=== PATIENT | female | born 1995 | race African-American/Black ===

== ENCOUNTER 2017-06-05 14:44 | Emergency (ER) | payer OTHER ==
[~2017-06-05] VITALS: Ht 165.1 cm; Wt 100.0 kg
[~2017-06-05 14:44] MED LIST: ZOLO50TA PO
[2017-06-05 14:47] VITALS: BP 161/95; PULSE 82; RESP 12; TEMP 98.2; O2SAT 98
[2017-06-05 16:34] VITALS: BP 145/85; PULSE 98; RESP 18; TEMP 97; O2SAT 98
--- NOTE | 2017-06-05 17:14 | PD ---
HPI Chief Complaint: Psychiatric Symptoms Time Seen by Provider: 17:04 Travel History International Travel<30 days: No Contact w/Intl Traveler<30days: No Traveled to known affect area: No History of Present Illness HPI 21-year-old Afro-[place] female presents the emergency department with history of depression and suicidal attempt by overdose in the distant past, comes in voluntarily with reports of "having a bad day". Patient was recently started on an antidepressant on 21 May. She states she woke up this morning after a nightmare, and states depression through the day. She denies suicidal or homicidal ideation, or medical issues. Patient states she is attempting to set up follow-up with local psychiatrist. She is currently here going to school and has support system with her sister and friends. She has no known drug allergies. She has no history of alcohol or drug abuse. PFSH Past Medical History Anemia: Yes Asthma: Yes Anxiety: Yes Depression: Yes Diminished Hearing: No Respiratory: Yes (ASTHMA) Tetanus Vaccination: < 5 Years ?: Not LMP: 05/27/17 Past Surgical History Surgical History: No Previous Surgery Social History Alcohol Use: Yes (OCC) Tobacco Use: No Substance Use: No Allergies-Medications (Allergen,Severity, Reaction): Coded Allergies: No Known Allergies (Unverified , 07/05/16) Reported Meds & Prescriptions Reported Meds & Active Scripts Active Review of Systems Except as stated in HPI: all other systems reviewed are Neg General / Constitutional: No: Fever Eyes: No: Visual changes HENT: No: Headaches Cardiovascular: No: Chest Pain or Discomfort Respiratory: No: Shortness of Breath Gastrointestinal: No: Abdominal Pain Genitourinary: No: Dysuria Musculoskeletal: No: Pain Skin: No Rash Neurologic: No: Weakness Psychiatric: Positive: Depression, No: Suicidal Ideations, Substance Abuse, Homicidal Ideation Endocrine: No: Polydipsia Hematologic/Lymphatic: No: Easy Bruising Physical Exam Narrative GENERAL: Patient appears well-groomed and in no acute distress. SKIN: Warm and dry. Normal color. Normal turgor. HEAD: Atraumatic. Normocephalic. EYES: Pupils equal and round. No scleral icterus. No injection or drainage. ENT: No nasal bleeding or discharge. Mucous membranes pink and moist. Pharynx is clear. Airway is patent. NECK: Trachea midline. Supple nontender. CARDIOVASCULAR: Regular rate and rhythm. RESPIRATORY: No accessory muscle use. Clear to auscultation. Breath sounds equal bilaterally. MUSCULOSKELETAL: Extremities without clubbing, cyanosis, or edema. No obvious deformities. NEUROLOGICAL: Awake and alert. No obvious cranial nerve deficits. Motor grossly within normal limits. Five out of 5 muscle strength in the arms and legs. Normal speech. PSYCHIATRIC: Appropriate mood and affect; insight and judgment normal. Data Data Last Documented VS Vital Signs Date Time Temp Pulse Resp B/P (MAP) Pulse Ox O2 Delivery O2 Flow Rate FiO2 06/05/17 16:34 97.0 98 18 145/85 (105) 98 Room Air Orders Orders Complete Blood Count With Diff (06/05/17 16:25) Comprehensive Metabolic Panel (06/05/17 16:25) Ed Urine Pregnancytest Poc (06/05/17 16:25) Psych Screen (06/05/17 16:25) Drug Screen, Random Urine (06/05/17 16:25) Diet Regular Basic (06/05/17 Dinner) MDM Medical Decision Making Medical Screen Exam Complete: Yes Emergency Medical Condition: Yes Medical Record Reviewed: Yes Differential Diagnosis Depression. Here for voluntary psychiatric evaluation. History of suicidal ideation Narrative Course After examining in evaluating the patient she contracts for safety, and as she is here voluntarily I do not feel she is a danger to herself or others. Labs are canceled. Patient is to follow-up with local psychiatric services as discussed. Patient states she will return to emergency department if her symptoms worsen. Patient is felt to be stable for discharge at this time. Diagnosis Primary Impression: Depression Qualified Codes: F32.9 - Major depressive disorder, single episode, unspecified Referrals: Psychiatrist Patient Instructions: General Instructions Additional Instructions: After examining in evaluating the patient she contracts for safety, and as she is here voluntarily I do not feel she is a danger to herself or others. Patient is to follow-up with local psychiatric services as discussed. Patient states she will return to emergency department if her symptoms worsen. Patient is felt to be stable for discharge at this time. Med/Other Pt SpecificInfo: No Change to Meds Scripts No Active Prescriptions or Reported Meds Disposition: DISCHARGE HOME Condition: Stable Ludwin Bond Jun 05, 2017 17:14
== END 2017-06-05 17:47 | disposition home or self-care (01) ==
LOC: NEPJ 14:44
DX: F32.9 Major depressive disorder, single episode, unspecified (principal); D64.9 Anemia, unspecified; J45.909 Unspecified asthma, uncomplicated; F41.9 Anxiety disorder, unspecified
CPT/HCPCS: 99283

== ENCOUNTER 2017-11-07 23:57 | Emergency (ER) | payer OTHER ==
[2017-11-08 00:27] VITALS: BP 149/74; PULSE 98; RESP 16; TEMP 99; O2SAT 99
[2017-11-08] MEDS ORDERED: SODIUM CHLORIDE 0.9% FLUSH 10 ML FLUSH IVF PRN (01:00)
[2017-11-08] MEDS ORDERED: IBUPROFEN SUSP 100 MG/5 ML 120 ML BOTTLE PO ONE (01:00)
[2017-11-08] MEDS ORDERED: DEXAMETHASONE SOD PHOS 4 MG/ML VIAL IV PUSH ONE (01:00)
--- NOTE | 2017-11-08 01:18 | PD ---
HPI Chief Complaint: Cold / Flu Symptoms Time Seen by Provider: 00:50 Travel History International Travel<30 days: No Contact w/Intl Traveler<30days: No Traveled to known affect area: No History of Present Illness HPI Patient is a 22-year-old female presented to the emergency department for evaluation of sore throat, dysphasia. Patient states that she cannot swallow because of the pain. Patient is spitting saliva into a bag. She reports a fever 2 days ago of 101. She states her roommate was sick and believes this is what got her sick as well. She states she took DayQuil, has been drinking hot tea and using sore throat lozenges. She has not had any medications today. She denies any cough, chest pain, abdominal pain, nausea, vomiting, headache. Symptom onset was gradual, symptoms are moderate to severe nature. She rates her pain a 7 out of 10, worse with swallowing. She also reports that she lost her voice. [facility] Past Medical History Anemia: Yes Asthma: Yes Anxiety: Yes Depression: Yes Diminished Hearing: No Respiratory: Yes (ASTHMA) ?: Not LMP: 10/19/17 Past Surgical History Surgical History: No Previous Surgery Social History Alcohol Use: Yes (OCC) Tobacco Use: No Substance Use: No Allergies-Medications (Allergen,Severity, Reaction): Coded Allergies: mushroom (Verified Allergy, Intermediate, 11/08/17) No Known Allergies (Unverified Allergy, Unknown, 11/08/17) Reported Meds & Prescriptions Reported Meds & Active Scripts Active No Active Prescriptions or Reported Medications Review of Systems Except as stated in HPI: all other systems reviewed are Neg HENT: Positive: Sore Throat, Congestion Physical Exam Narrative GENERAL: Overweight, well-developed, alert -[place] female. Presenting in no acute distress. SKIN: Warm and dry. HEAD: Atraumatic. Normocephalic. EYES: Pupils equal and round. No scleral icterus. No injection or drainage. ENT: No nasal bleeding or discharge. Mucous membranes pink and moist. Airway appears patent, uvula is midline, no tonsillar hypertrophy noted. No stridor noted. NECK: Trachea midline. No JVD. CARDIOVASCULAR: Regular rate and rhythm. RESPIRATORY: No accessory muscle use. Clear to auscultation. Breath sounds equal bilaterally. GASTROINTESTINAL: Abdomen soft, non-tender, nondistended. Hepatic and splenic margins not palpable. MUSCULOSKELETAL: Extremities without clubbing, cyanosis, or edema. No obvious deformities. NEUROLOGICAL: Awake and alert. No obvious cranial nerve deficits. Motor grossly within normal limits. Five out of 5 muscle strength in the arms and legs. Normal speech. PSYCHIATRIC: Appropriate mood and affect; insight and judgment normal. Data Data Last Documented VS Vital Signs Date Time Temp Pulse Resp B/P (MAP) Pulse Ox O2 Delivery O2 Flow Rate FiO2 11/08/17 00:27 99.0 98 16 149/74 (99) 99 Orders Orders Basic Metabolic Panel (Bmp) (11/08/17 00:51) Complete Blood Count With Diff (11/08/17 00:51) Monoscreen (11/08/17 00:51) Group A Rapid Strep Screen (11/08/17 00:51) Ct Soft Tiss Neck W Iv Cont (11/08/17 00:51) Dexamethasone Inj (Decadron Inj) (11/08/17 01:00) Sodium Chloride 0.9% Flush (Ns Flush) (11/08/17 01:00) Ed Urine Pregnancytest Poc (11/08/17 00:51) Iv Access Insert/Monitor (11/08/17 00:51) Ibuprofen Liq (Motrin Liq) (11/08/17 01:00) Ibuprofen Liq (Motrin Liq) (11/08/17 01:32) Urinalysis - C+S If Indicated (11/08/17 02:02) Sodium Chlor 0.9% 1000 Ml Inj (Ns 1000 M (11/08/17 02:15) Strep Culture (Group A) (11/08/17 00:50) Amoxicillin (Trimox) (11/08/17 02:30) Iohexol 350 Inj (Omnipaque 350 Inj) (11/08/17 02:54) Labs Laboratory Tests Test 11/08/17 01:00 11/08/17 02:10 White Blood Count 12.3 TH/MM3 Red Blood Count 4.41 MIL/MM3 Hemoglobin 10.5 GM/DL Hematocrit 32.6 % Mean Corpuscular Volume 73.9 FL Mean Corpuscular Hemoglobin 23.9 PG Mean Corpuscular Hemoglobin Concent 32.3 % Red Cell Distribution Width 16.0 % Platelet Count 504 TH/MM3 Mean Platelet Volume 7.2 FL Neutrophils (%) (Auto) 68.6 % Lymphocytes (%) (Auto) 20.7 % Monocytes (%) (Auto) 8.9 % Eosinophils (%) (Auto) 1.5 % Basophils (%) (Auto) 0.3 % Neutrophils # (Auto) 8.4 TH/MM3 Lymphocytes # (Auto) 2.5 TH/MM3 Monocytes # (Auto) 1.1 TH/MM3 Eosinophils # (Auto) 0.2 TH/MM3 Basophils # (Auto) 0.0 TH/MM3 CBC Comment DIFF FINAL Differential Comment Blood Urea Nitrogen 5 MG/DL Creatinine 0.72 MG/DL Random Glucose 87 MG/DL Calcium Level 8.9 MG/DL Sodium Level 139 MEQ/L Potassium Level 3.4 MEQ/L Chloride Level 103 MEQ/L Carbon Dioxide Level 25.7 MEQ/L Anion Gap 10 MEQ/L Estimat Glomerular Filtration Rate 124 ML/MIN Monoscreen NEG Urine Color YELLOW Urine Turbidity HAZY Urine pH 6.0 Urine Specific Castella 1.032 Urine Protein 30 mg/dL Urine Glucose (UA) NEG mg/dL Urine Ketones 40 mg/dL Urine Occult Blood NEG Urine Nitrite NEG Urine Bilirubin NEG Urine Urobilinogen 4.0 MG/DL Urine Leukocyte Esterase SMALL Urine RBC 5 /hpf Urine WBC 4 /hpf Urine Squamous Epithelial Cells 3 /hpf Urine Bacteria RARE /hpf Microscopic Urinalysis Comment CULT NOT INDICATED MDM Medical Decision Making Medical Screen Exam Complete: Yes Emergency Medical Condition: Yes Interpretation(s) Laboratory Tests Test 11/08/17 01:00 11/08/17 02:10 White Blood Count 12.3 TH/MM3 Red Blood Count 4.41 MIL/MM3 Hemoglobin 10.5 GM/DL Hematocrit 32.6 % Mean Corpuscular Volume 73.9 FL Mean Corpuscular Hemoglobin 23.9 PG Mean Corpuscular Hemoglobin Concent 32.3 % Red Cell Distribution Width 16.0 % Platelet Count 504 TH/MM3 Mean Platelet Volume 7.2 FL Neutrophils (%) (Auto) 68.6 % Lymphocytes (%) (Auto) 20.7 % Monocytes (%) (Auto) 8.9 % Eosinophils (%) (Auto) 1.5 % Basophils (%) (Auto) 0.3 % Neutrophils # (Auto) 8.4 TH/MM3 Lymphocytes # (Auto) 2.5 TH/MM3 Monocytes # (Auto) 1.1 TH/MM3 Eosinophils # (Auto) 0.2 TH/MM3 Basophils # (Auto) 0.0 TH/MM3 CBC Comment DIFF FINAL Differential Comment Blood Urea Nitrogen 5 MG/DL Creatinine 0.72 MG/DL Random Glucose 87 MG/DL Calcium Level 8.9 MG/DL Sodium Level 139 MEQ/L Potassium Level 3.4 MEQ/L Chloride Level 103 MEQ/L Carbon Dioxide Level 25.7 MEQ/L Anion Gap 10 MEQ/L Estimat Glomerular Filtration Rate 124 ML/MIN Monoscreen NEG Urine Color YELLOW Urine Turbidity HAZY Urine pH 6.0 Urine Specific Castella 1.032 Urine Protein 30 mg/dL Urine Glucose (UA) NEG mg/dL Urine Ketones 40 mg/dL Urine Occult Blood NEG Urine Nitrite NEG Urine Bilirubin NEG Urine Urobilinogen 4.0 MG/DL Urine Leukocyte Esterase SMALL Urine RBC 5 /hpf Urine WBC 4 /hpf Urine Squamous Epithelial Cells 3 /hpf Urine Bacteria RARE /hpf Microscopic Urinalysis Comment CULT NOT INDICATED Vital Signs Date Time Temp Pulse Resp B/P (MAP) Pulse Ox O2 Delivery O2 Flow Rate FiO2 11/08/17 00:27 99.0 98 16 149/74 (99) 99 Differential Diagnosis Peritonsillar abscess versus pharyngitis versus URI versus other Narrative Course Patient is a 22-year-old female presenting to emerge from for evaluation of sore throat, dysphagia, fevers. Her vital signs are stable. Her airway appears patent however she is drooling and cannot swallow in the room. Labs imaging ordered and pending. Patient was given dexamethasone and ibuprofen now. Will reassess. CBC with a white blood cell count of 12.3 with no left shift, chemistry with potassium 3.4. Urinalysis is not consistent with a urinary tract infection. Monospot is negative, strep is negative. Patient will be treated empirically for pharyngitis. She received first dose of Augmentin in the emergency department. CT scan of the soft tissues of the neck shows markedly enlarged symmetric adenoid tonsils are mildly enlarged symmetric palatine tonsils. No evidence of abscess. Ethmoid and maxillary sinus disease. Multiple mildly prominent cervical lymph nodes likely reactive. Patient was encouraged to complete full course of antibiotics as prescribed. She is encouraged to return to emergency department for new worsening symptoms. Patient verbalized understanding of instructions. Patient stable for discharge. Diagnosis Primary Impression: Acute tonsillitis Qualified Codes: J03.90 - Acute tonsillitis, unspecified Referrals: Primary Care Physician Patient Instructions: General Instructions, Tonsillitis (ED) Additional Instructions: Follow-up with your primary doctor Complete full course of antibiotics as prescribed Maintain adequate fluid intake Return to emergency department for any new worsening symptoms Med/Other Pt SpecificInfo: Prescription(s) given Scripts Ibuprofen (Ibuprofen) 800 Mg Tab 800 MG PO Q6HR Y for PAIN, #40 TAB 0 Refills Prov: Radha Porter 11/08/17 Amoxicillin (Amoxicillin) 875 Mg Tab 875 MG PO BID for Infection for 10 Days, #20 TAB 0 Refills Prov: Radha Porter 11/08/17 Disposition: 01 DISCHARGE HOME Condition: Stable Radha Porter Nov 08, 2017 01:18
[2017-11-08] MEDS ORDERED: IBUPROFEN SUSP 100 MG/5 ML UDC ONE (01:32)
[2017-11-08 01:36] LABS: AUTOMATED NEUTROPHIL # 8.4 TH/MM3 (1.8-7.7); BASOPHIL % 0.3 % (0.0-2.0); EOSINOPHIL # 0.2 TH/MM3 (0-0.4); EOSINOPHIL % 1.5 % (0.0-4.0); HEMATOCRIT 32.6 % (35.0-46.0); HEMOGLOBIN 10.5 GM/DL (11.6-15.3); LYMPH % 20.7 % (9.0-44.0); LYMPHOCYTE # 2.5 TH/MM3 (1.0-4.8); MEAN CELL VOLUME 73.9 FL (80.0-100.0); MEAN CORPUSCULAR HEMOGLOBIN 23.9 PG (27.0-34.0); MEAN CORPUSCULAR HGB CONC 32.3 % (32.0-36.0); MEAN PLATELET VOLUME 7.2 FL (7.0-11.0); MONO % 8.9 % (0.0-8.0); MONOCYTE # 1.1 TH/MM3 (0-0.9); NEUT % 68.6 % (16.0-70.0); PLATELET COUNT 504 TH/MM3 (150-450); RED BLOOD COUNT 4.41 MIL/MM3 (4.00-5.30); WHITE BLOOD COUNT 12.3 TH/MM3 (4.0-11.0)
[2017-11-08 01:55] LABS: BICARBONATE 25.7 MEQ/L (21.0-32.0); CALCIUM 8.9 MG/DL (8.5-10.1); CREATININE 0.72 MG/DL (0.50-1.00)
[2017-11-08 02:07] LABS: MONOSCREEN NEG (NEG)
[2017-11-08] MEDS ORDERED: SODIUM CHLOR 0.9% 1000 ML INJ 1,000 ML IV ONE (02:15)
[2017-11-08] MEDS ORDERED: AMOXICILLIN 875 MG TAB PO ONE (02:30)
[2017-11-08 02:54] LABS: BACTERIA, URINE RARE /hpf; BLOOD, URINE NEG (NEG); GLUCOSE,URINE NEG (NEG); KETONE, URINE 40 mg/dL (NEG); NITRITE,URINE NEG (NEG); SQUAMOUS EPITHELIAL CELL URINE 3 /hpf (0-5); URINE COLOR YELLOW (YELLW/STRAW); URINE LEUKOCYTE ESTERASE SMALL (NEG)
[2017-11-08] MEDS ORDERED: IOHEXOL 350 MG/ML 10 ML VIAL (for RAD DIAG) IVCONTRAST ONE (02:54)
[2017-11-08 02:56] LABS: BILIRUBIN, URINE NEG (NEG)
--- NOTE | 2017-11-08 03:14 | RADRPT ---
EXAM DATE/TIME: 11/08/2017 02:52 [facility] COMPARISON: No previous studies available for comparison. INDICATIONS : Fever, throat swelling. IV CONTRAST: 70 cc Omnipaque 350 (iohexol) IV RADIATION DOSE: 21.53 CTDIvol (mGy) MEDICAL HISTORY : None SURGICAL HISTORY : None. ENCOUNTER: Initial ACUITY: 1 day PAIN SCALE: 3/10 LOCATION: neck TECHNIQUE: Volumetric scanning of the neck was performed. Using automated exposure control and adjustment of th e mA and/or kV according to patient size, radiation dose was kept as low as reasonably achievable to obtain optimal diagnostic quality images. DICOM format image data is available electronically for r eview and comparison. FINDINGS: NASOPHARYNX: Symmetric enlargement of the adenoid tonsils/posterior nasopharyngeal soft tissue. No organized perip herally enhancing fluid collection. OROPHARYNX: Mild bilateral enlargement of the palate seen tonsils. No organized peripherally enhancing fluid gina ection. LARYNX: The supraglottic, glottic, and infraglottic structures are intact. PARAPHARYNGEAL: The parapharyngeal space is intact. SALIVARY GLANDS: The parotid and submandibular glands are intact. LYMPH NODES: Multiple diffusely scattered prominent bilateral cervical lymph nodes with the largest on the right m easuring 1.6 cm in short axis dimension on image #39 and the largest on the left measuring 1.4 cm in short axis dimension on image #39. These are likely reactive. No necrotic lymph nodes identified. THYROID: Homogeneous enhancement without evidence of nodule. BONES: Unremarkable. Moderate mucosal thickening of ethmoid sinuses. Mild mucosal thickening of the maxillar y sinuses. Moderate mucosal thickening of the sphenoid sinus is. CONCLUSION: 1. Markedly enlarged symmetric adenoid tonsils and mildly enlarged symmetric palatine tonsils. No elaine dence of abscess. 2. Ethmoid and maxillary sinus disease. 3. Multiple mildly prominent cervical lymph nodes likely reactive. Shahid Reyes MD on November 08, 2017 at 3:02 Board Certified Radiologist. This report was verified electronically.
[2017-11-08] MEDS ORDERED: AMOX875T PO (03:26)
[2017-11-08] MEDS ORDERED: IBUP1TAB7 PO (03:26)
[2017-11-08 03:40] VITALS: BP 134/77; TEMP 98.6
== END 2017-11-08 03:49 | disposition home or self-care (01) ==
LOC: NEPD 23:57
DX: J03.90 Acute tonsillitis, unspecified (principal); J32.2 Chronic ethmoidal sinusitis; J32.0 Chronic maxillary sinusitis; D64.9 Anemia, unspecified; J45.909 Unspecified asthma, uncomplicated; F41.9 Anxiety disorder, unspecified; F32.9 Major depressive disorder, single episode, unspecified
CPT/HCPCS: 70491; 80048; 81001; 84703; 85025; 86308; 87081; 87880; 96361; 96374; 99284; J1100; J7030; Q9967